=== PATIENT | male | born 1980 | race Caucasian/White ===

== ENCOUNTER 2016-09-23 07:25 | Emergency (ER) | payer OTHER ==
[~2016-09-23] VITALS: Ht 170.2 cm; Wt 91.0 kg
[~2016-09-23 07:25] MED LIST: ERYT.5%O LEFT EYE; SUMA50TA2 PO
[2016-09-23 07:31] VITALS: BP 127/78; PULSE 89; RESP 20; TEMP 98.1; O2SAT 96
[2016-09-23 07:36] VITALS: RESP 20; O2SAT 98
--- NOTE | 2016-09-23 07:41 | PD ---
HPI Chief Complaint: chest pain Time Seen by Provider: 07:29 Travel History International Travel<30 days: No Contact w/Intl Traveler<30days: No History of Present Illness HPI This is a 35-year-old male who presents to the emergency department with left sided chest discomfort that started fairly abruptly at 5:30 this morning, constant, severe, associated with some shortness of breath and nausea. He says he vomited yesterday. He says he's had pain like this in the past but it usually lasts for a couple of seconds and then subsides. He denies any recent illness. He denies heavy alcohol use. He does smoke cigarettes. He has no family history of heart attack. PFSH Past Medical History Asthma: Yes (ASTHMA WHEN HE WAS A CHILD) Blood Disorders: No Anxiety: No Depression: No Heart Rhythm Problems: No Cancer: No Cardiovascular Problems: No High Cholesterol: No Chemotherapy: No Chest Pain: No Congestive Heart Failure: No COPD: No Diabetes: No Diminished Hearing: No Endocrine: No Genitourinary: No Headaches: Yes Hepatitis: No Hiatal Hernia: No Hypertension: No Immune Disorder: No Musculoskeletal: Yes (3 HERNIATED DISCS, 1 BULDGING DISC) Neurologic: Yes (2 PINCHED NERVES IN NECK) Psychiatric: No Reproductive: No Respiratory: Yes Myocardial Infarction: No Radiation Therapy: No Sleep Apnea: No Thyroid Disease: No Past Surgical History Abdominal Surgery: No AICD: No Cardiac Surgery: No Ear Surgery: No Endocrine Surgery: No Eye Surgery: No Genitourinary Surgery: No Gynecologic Surgery: No Joint Replacement: No Oral Surgery: No Pacemaker: No Thoracic Surgery: No Other Surgery: Yes (LEFT SHOULDER SURGERY) Social History Alcohol Use: Yes (RARELY) Tobacco Use: Yes (/ PPD) Substance Use: No Allergies-Medications (Allergen,Severity, Reaction): Coded Allergies: No Known Allergies (Verified , 09/23/16) Reported Meds & Prescriptions Reported Meds & Active Scripts Active No Active Prescriptions or Reported Medications Review of Systems Except as stated in HPI: all other systems reviewed are Neg Physical Exam Narrative GENERAL: Anxious appearing, tachypneic SKIN: Warm and dry. HEAD: Atraumatic. Normocephalic. EYES: Pupils equal and round. No injection or drainage. ENT: Moist mucous membranes NECK: Trachea midline. CARDIOVASCULAR: Regular rate and rhythm. No murmur appreciated. Tender to palpation along the left chest wall and breast RESPIRATORY: Clear to auscultation. Breath sounds equal bilaterally. GASTROINTESTINAL: Abdomen soft, diffusely tender to palpation, worse in the epigastrium and left upper quadrants. MUSCULOSKELETAL: No obvious deformities. NEUROLOGICAL: Awake and alert. No obvious cranial nerve deficits. Moving all extremities. PSYCHIATRIC: Appropriate mood and affect; insight and judgment normal. Data Data Last Documented VS Vital Signs Date Time Temp Pulse Resp B/P Pulse Ox O2 Delivery O2 Flow Rate FiO2 09/23/16 08:59 76 18 121/72 98 Room Air 09/23/16 07:31 98.1 Orders Electrocardiogram (09/23/16 ) Complete Blood Count With Diff (09/23/16 07:35) Comprehensive Metabolic Panel (09/23/16 07:35) Urinalysis - C+S If Indicated (09/23/16 07:35) Iv Access Insert/Monitor (09/23/16 07:35) Ecg Monitoring (09/23/16 07:35) Oximetry (09/23/16 07:35) Sodium Chloride 0.9% Flush (Ns Flush) (09/23/16 07:45) Chest, Single Ap (09/23/16 07:35) Lipase (09/23/16 07:35) D-Dimer (09/23/16 07:35) Hydromorphone Pf Inj (Dilaudid Pf Inj) (09/23/16 07:45) Sodium Chlor 0.9% 1000 Ml Inj (Ns 1000 M (09/23/16 07:45) Troponin I (09/23/16 07:42) Ct Abd/Pel W Iv Contrast(Rout) (09/23/16 ) Labs Laboratory Tests Test 09/23/16 07:30 White Blood Count 11.3 TH/MM3 Red Blood Count 4.96 MIL/MM3 Hemoglobin 15.3 GM/DL Hematocrit 44.4 % Mean Corpuscular Volume 89.3 FL Mean Corpuscular Hemoglobin 30.9 PG Mean Corpuscular Hemoglobin 34.6 % Concent Red Cell Distribution Width 13.6 % Platelet Count 234 TH/MM3 Mean Platelet Volume 8.6 FL Neutrophils (%) (Auto) 53.5 % Lymphocytes (%) (Auto) 34.0 % Monocytes (%) (Auto) 9.0 % Eosinophils (%) (Auto) 2.8 % Basophils (%) (Auto) 0.7 % Neutrophils # (Auto) 6.0 TH/MM3 Lymphocytes # (Auto) 3.8 TH/MM3 Monocytes # (Auto) 1.0 TH/MM3 Eosinophils # (Auto) 0.3 TH/MM3 Basophils # (Auto) 0.1 TH/MM3 CBC Comment DIFF FINAL Differential Comment D-Dimer Quantitative (PE/DVT) LESS THAN 0.19 MG/L FEU Sodium Level 141 MEQ/L Potassium Level 3.7 MEQ/L Chloride Level 108 MEQ/L Carbon Dioxide Level 26.2 MEQ/L Anion Gap 7 MEQ/L Blood Urea Nitrogen 13 MG/DL Creatinine 1.19 MG/DL Estimat Glomerular Filtration 70 ML/MIN Rate Random Glucose 99 MG/DL Calcium Level 8.7 MG/DL Total Bilirubin 0.2 MG/DL Aspartate Amino Transf 12 U/L (AST/SGOT) Alanine Aminotransferase 37 U/L (ALT/SGPT) Alkaline Phosphatase 48 U/L Troponin I LESS THAN 0.02 NG/ML Total Protein 7.0 GM/DL Albumin 3.9 GM/DL Lipase 121 U/L [facility] Medical Decision Making Medical Screen Exam Complete: Yes Emergency Medical Condition: Yes Interpretation(s) Mild leukocytosis Electrolytes are reassuring Troponin is normal Lipase is normal D-dimer is less than 0.19 EKG: Normal sinus rhythm with some T-wave flattening in V2 and an incomplete right bundle-branch block pattern Used x-ray: No acute process CT abdomen and pelvis: No acute process Differential Diagnosis Pneumothorax, pulmonary embolism, pneumonia, pancreatitis, perforated ulcer Narrative Course This is a 35-year-old male who presents to the emergency department with left- sided chest pain. He is pretty uncomfortable looking upon arrival. He was placed on a monitor and an IV was established. Vital signs were reassuring. Labs are obtained which were normal including a negative d-dimer. EKG was nonischemic. Chest x-ray was reassuring with no evidence of free air. Patient was quite tender on abdominal exam so a CT was obtained which was reassuring. He is tender along the chest wall. I suspect his symptoms are due to costochondritis and there possibly may be a component of anxiety. I no suspicion for acute coronary syndrome as it would be very atypical with his abdominal tenderness. He has no risk factors for ACS with the exception of smoking. I think the patient can safely be discharged with muscle relaxers and anti-inflammatories and can follow-up with his primary care physician. Diagnosis Primary Impression: Costochondritis Patient Instructions: General Instructions Additional Instructions: If you develop severe chest pain, shortness of breath, sweating, lightheadedness , dizziness or difficulty breathing return to the emergency department immediately. Followup with your primary care physician in 2-3 days if your symptoms are not resolved. You have a 2.3 cm enhancing nodule within the right lobe of the liver near the dome posteriorly which may represent hemangioma or focal nodular hyperplasia. Outpatient MRI of the abdomen with contrast may be helpful for further evaluation of this lesion if clinically indicated. Discuss this with you primary care physician. Med/Other Pt SpecificInfo: Prescription(s) given Scripts Cyclobenzaprine (Flexeril)10 Mg Tab10 Mg PO TID #10 TAB Ref 0 Prov:Gabriela Tse MD 09/23/16 Naproxen 500 Mg [id number] Mg PO BID PRN (PAIN SCALE 4 TO 10) #20 TAB Prov:Gabriela Tse MD 09/23/16 Disposition: 01 DISCHARGE HOME Condition: Stable Gabriela Tse MD Sep 23, 2016 07:41
[2016-09-23] MEDS ORDERED: SODIUM CHLORIDE 0.9% FLUSH 10 ML FLUSH IV FLUSH PRN (07:45)
[2016-09-23] MEDS ORDERED: SODIUM CHLOR 0.9% 1000 ML INJ 1,000 ML IV ONE (07:45)
[2016-09-23] MEDS ORDERED: HYDROmorphone HCL PF 1 MG/ML VIAL IV PUSH ONE (07:45)
[2016-09-23 07:59] LABS: BASOPHIL # 0.1 TH/MM3 (0-0.2); BASOPHIL % 0.7 % (0.0-2.0); EOSINOPHIL # 0.3 TH/MM3 (0-0.4); EOSINOPHIL % 2.8 % (0.0-4.0); HEMATOCRIT 44.4 % (39.0-51.0); HEMO FLAGS DIFF FINAL; LYMPHOCYTE # 3.8 TH/MM3 (1.0-4.8); MEAN CELL VOLUME 89.3 FL (80.0-100.0); MEAN CORPUSCULAR HEMOGLOBIN 30.9 PG (27.0-34.0); MEAN CORPUSCULAR HGB CONC 34.6 % (32.0-36.0); NEUT % 53.5 % (16.0-70.0); PLATELET COUNT 234 TH/MM3 (150-450); RED BLOOD COUNT 4.96 MIL/MM3 (4.50-5.90); RED CELL DISTRIBUTION WIDTH 13.6 % (11.6-17.2); WHITE BLOOD COUNT 11.3 TH/MM3 (4.0-11.0)
[2016-09-23 08:13] LABS: ALT (GPT) 37 U/L (12-78); ANION GAP 7 MEQ/L (5-15); AST (GOT) 12 U/L (15-37); BICARBONATE 26.2 MEQ/L (21.0-32.0); BLOOD UREA NITROGEN 13 MG/DL (7-18); CHLORIDE 108 MEQ/L (98-107); GLOMERULAR FILTRATION RATE 70 ML/MIN (>89); POTASSIUM 3.7 MEQ/L (3.5-5.1); SODIUM (NA) 141 MEQ/L (136-145)
[2016-09-23 08:15] LABS: ALKALINE PHOSPHATASE 48 U/L (45-117); TOTAL BILIRUBIN ADULT 0.2 MG/DL (0.2-1.0)
[2016-09-23] MEDS ORDERED: IOHEXOL 350 MG/ML 10 ML VIAL (for RAD DIAG) IV ONE (08:46)
[2016-09-23 08:59] VITALS: BP 121/72; PULSE 76; RESP 18; O2SAT 98
--- NOTE | 2016-09-23 09:34 | RADRPT ---
EXAM DATE/TIME: 09/23/2016 08:14 [facility] COMPARISON: CHEST SINGLE AP, November 03, 2015, 23:17. INDICATIONS : Short of breath since 5am this morning, no chest pain at this time, smoker MEDICAL HISTORY : None. SURGICAL HISTORY : None. ENCOUNTER: Initial ACUITY: 1 day PAIN SCORE: 0/10 LOCATION: Bilateral chest FINDINGS: A single view of the chest demonstrates the lungs to be symmetrically aerated without evidence of mas s, infiltrate or effusion. The cardiomediastinal contours are unremarkable. Osseous structures are intact. CONCLUSION: No acute disease. Felix Vernon MD on September 23, 2016 at 9:32 Board Certified Radiologist. This report was verified electronically.
--- NOTE | 2016-09-23 09:42 | RADRPT ---
EXAM DATE/TIME: 09/23/2016 08:46 [facility] COMPARISON: No previous studies available for comparison. INDICATIONS : Lower abdominal pain, nausea and vomiting. IV CONTRAST: 95 cc Omnipaque 350 (iohexol) IV ORAL CONTRAST: No oral contrast ingested. RADIATION DOSE: 14.34 CTDIvol (mGy) MEDICAL HISTORY : Gallstones. SURGICAL HISTORY : None. ENCOUNTER: Initial ACUITY: 1 day PAIN SCALE: 7/10 LOCATION: Bilateral lower quadrant TECHNIQUE: Volumetric scanning of the abdomen and pelvis was performed. Using automated exposure control and ad justment of the mA and/or kV according to patient size, radiation dose was kept as low as reasonably achievable to obtain optimal diagnostic quality images. FINDINGS: LOWER LUNGS: The visualized lower lungs are clear. LIVER: The liver is mildly enlarged and demonstrates diffuse fatty infiltration. There is a 2.3 cm enhancing nodule within the right lobe near the dome posteriorly which raises the possibility of hemangioma or focal nodular hyperplasia. Outpatient MRI of the abdomen with contrast may be helpful for further ch aracterization of this finding if clinical indicated. There is no dilation of the biliary tree. No c alcified gallstones. SPLEEN: Normal size without lesion. PANCREAS: Within normal limits. KIDNEYS: Normal in size and shape. There is no mass or hydronephrosis. It is difficult to rule out tiny nonob structing calcified calculi on this contrast-enhanced examination. Noncontrast study would be more se nsitive to rule out tiny nonobstructing calcified calculi if clinically indicated. ADRENAL GLANDS: Within normal limits. VASCULAR: There is no aortic aneurysm. BOWEL/MESENTERY: The stomach, small bowel, and colon demonstrate no acute abnormality. There is no free intraperitone al air or fluid. The appendix is normal. ABDOMINAL WALL: Within normal limits. RETROPERITONEUM: There is no lymphadenopathy. BLADDER: No wall thickening or mass. REPRODUCTIVE: Within normal limits. INGUINAL: There is no lymphadenopathy or hernia. MUSCULOSKELETAL: Within normal limits for patient age. CONCLUSION: 1. Enlarged fatty liver. 2. 2.3 cm enhancing nodule within the right lobe of the liver near the dome posteriorly which may rep resent hemangioma or focal nodular hyperplasia. Outpatient MRI of the abdomen with contrast may be he lpful for further evaluation of this lesion if clinically indicated. Felix Vernon MD on September 23, 2016 at 9:33 Board Certified Radiologist. This report was verified electronically.
[2016-09-23] MEDS ORDERED: NAPR500T PO (09:50)
[2016-09-23] MEDS ORDERED: CYCL1TAB29 PO (09:50)
[2016-09-23 10:00] VITALS: BP 122/76; TEMP 97.8
--- NOTE | 2016-09-24 10:59 | EKG ---
Date Performed: 09/23/2016 Time Performed: 07:36:07 PTAGE: 35 years EKG: Sinus rhythm INCOMPLETE RIGHT BUNDLE BRANCH BLOCK NONSPECIFIC ST & T-WAVE ABNORMALITY BORDERLINE ECG PREVIOUS TRACING : 11/03/2015 23.00 DOCTOR: Kathleen Cortes Interpretating Date/Time 09/24/2016 10:57:28
== END 2016-09-23 10:00 | disposition home or self-care (01) ==
LOC: NEPC 07:25
DX: M94.0 Chondrocostal junction syndrome [Tietze] (principal); F17.210 Nicotine dependence, cigarettes, uncomplicated; R94.31 Abnormal electrocardiogram [ECG] [EKG]; R06.02 Shortness of breath; R11.2 Nausea with vomiting, unspecified
CPT/HCPCS: 71010; 74177; 80053; 83690; 84484; 85025; 85379; 93005; 96361; 96374; 99285; J1170; J7030; Q9967

== ENCOUNTER 2017-07-22 13:42 | Emergency (ER) | payer OTHER ==
[~2017-07-22] VITALS: Ht 172.7 cm; Wt 86.0 kg
[~2017-07-22 13:42] MED LIST changes: +CYCL10TA PO; -ERYT.5%O LEFT EYE; +NAPR500T2 PO; -SUMA50TA2 PO
[2017-07-22 13:50] VITALS: BP 133/82; PULSE 79; RESP 20; TEMP 98.3; O2SAT 95
[2017-07-22 14:04] VITALS: BP 133/82; PULSE 79; RESP 20; TEMP 98.3; O2SAT 96
[2017-07-22 14:11] VITALS: PULSE 83; RESP 20; O2SAT 96
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
[2017-07-22] MEDS ORDERED: SODIUM CHLORIDE 0.9% FLUSH 10 ML FLUSH IVF PRN (14:15)
[2017-07-22] MEDS ORDERED: MORPHINE SULFATE 4 MG/ML INJ IV PUSH ONE (14:30)
[2017-07-22] MEDS ORDERED: SODIUM CHLOR 0.9% 1000 ML INJ 1,000 ML IV ONE (14:30)
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
[2017-07-22 15:05] LABS: BASOPHIL % 0.4 % (0.0-2.0); EOSINOPHIL # 0.3 TH/MM3 (0-0.4); EOSINOPHIL % 2.8 % (0.0-4.0); HEMATOCRIT 45.8 % (39.0-51.0); HEMOGLOBIN 16.1 GM/DL (13.0-17.0); LYMPH % 30.5 % (9.0-44.0); LYMPHOCYTE # 3.1 TH/MM3 (1.0-4.8); MEAN CELL VOLUME 92.6 FL (80.0-100.0); MEAN CORPUSCULAR HEMOGLOBIN 32.5 PG (27.0-34.0); MEAN CORPUSCULAR HGB CONC 35.1 % (32.0-36.0); MONO % 7.8 % (0.0-8.0); MONOCYTE # 0.8 TH/MM3 (0-0.9); NEUT % 58.5 % (16.0-70.0); PLATELET COUNT 227 TH/MM3 (150-450); RED BLOOD COUNT 4.95 MIL/MM3 (4.50-5.90); RED CELL DISTRIBUTION WIDTH 13.7 % (11.6-17.2); WHITE BLOOD COUNT 10.3 TH/MM3 (4.0-11.0)
[2017-07-22 15:16] LABS: PROTHROMBIN TIME - PATIENT 10.6 SEC (9.8-11.6)
[2017-07-22 15:22] LABS: ALT (GPT) 30 U/L (12-78); AST (GOT) 13 U/L (15-37); BICARBONATE 28.4 MEQ/L (21.0-32.0); BLOOD UREA NITROGEN 10 MG/DL (7-18); CALCIUM 8.5 MG/DL (8.5-10.1); CHLORIDE 106 MEQ/L (98-107); CREATININE 1.16 MG/DL (0.60-1.30); GLOMERULAR FILTRATION RATE 71 ML/MIN (>89); GLUCOSE,RANDOM 100 MG/DL (74-106); SODIUM (NA) 140 MEQ/L (136-145)
[2017-07-22 15:26] LABS: ALKALINE PHOSPHATASE 57 U/L (45-117); TOTAL BILIRUBIN ADULT 0.6 MG/DL (0.2-1.0); TOTAL PROTEIN 7.3 GM/DL (6.4-8.2); TROPONIN I LESS THAN 0.02 NG/ML (0.02-0.05)
[2017-07-22 15:56] LABS: D-DIMER 0.23 MG/L FEU (0.00-0.50)
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
--- NOTE | 2017-07-23 12:39 | EKG ---
Date Performed: 07/22/2017 Time Performed: 14:51:23 PTAGE: 36 years EKG: Sinus rhythm INCOMPLETE RIGHT BUNDLE BRANCH BLOCK BORDERLINE ECG Since PREVIOUS TRACING , no significant change noted PREVIOUS TRACIN09/23/2016 07.36 DOCTOR: Zane Garza Interpretating Date/Time 07/23/2017 12:39:09
== END 2017-07-22 16:58 | disposition home or self-care (01) ==
LOC: NEPC 13:42
DX: S13.4XXA Sprain of ligaments of cervical spine, initial encounter (principal); S39.012A Strain of muscle, fascia and tendon of lower back, initial encounter; V43.52XA Car driver injured in collision with other type car in traffic accident, initial encounter; R51 Headache; M94.0 Chondrocostal junction syndrome [Tietze]; R94.31 Abnormal electrocardiogram [ECG] [EKG]; F17.200 Nicotine dependence, unspecified, uncomplicated
CPT/HCPCS: 70450; 71045; 72072; 72100; 72125; 80053; 82550; 84484; 85025; 85379; 85610; 85730; 93005; 96374; 99285; J2270; J7030